=== PATIENT | female | born 1940 | race Two or more races ===

== ENCOUNTER 2018-11-16 19:29 | Emergency (ER) | payer OTHER ==
[~2018-11-16] VITALS: Ht 162.6 cm; Wt 65.8 kg
[2018-11-16 23:03] LABS: Basophils # (auto) 0 uL; Basophils % (auto) 0.6 % (0.0-2.0); Eosinophils # (auto) 0 uL; Hematocrit 45.8 % (36.0-46.0); Hemoglobin 15.5 g/dL (12.2-16.2); Lymphocytes # (auto) 0.4 uL; Lymphocytes % (auto) 4.9 % (10.0-50.0); Mean Corpuscular Hemoglobin 31.7 pg (28.0-32.0); Mean Corpuscular Hgb Conc. 33.8 g/dL (32.0-36.0); Mean Corpuscular Volume 93.6 fL (80.0-100.0); Monocytes # (auto) 0.5 uL; Monocytes % (auto) 5.8 % (0.0-12.0); Neutrophils # (auto) 7.6 uL; Neutrophils % (auto) 88.7 % (37.0-80.0); Platelet Count (auto) 148 10^3/uL (140-450); Red Cell Distribution Width 14.2 % (11.8-14.3); White Blood Cell 8.6 10^3/uL (4.4-10.8)
[2018-11-16 23:23] LABS: Albumin 2.8 g/dL (3.4-5.0); BUN/Creatinine Ratio 17.1; Calcium 8.9 mg/dL (8.5-10.1); Potassium 4.3 mmol/L (3.5-5.1)
[2018-11-16 23:29] LABS: Bilirubin, Total 0.4 mg/dL (0.2-1.0); Total Protein 7.1 g/dL (6.4-8.2)
[2018-11-17] LABS: Urine Blood Negative /uL (Negative); Urine Specific Gravity 1.022 (1.001-1.035); Urine WBC 1 /hpf (0 - 5)
[2018-11-17] MEDS ORDERED: ALBUTEROL SULF 2.5 MG/0.5ML(0.5%) NEB SOLN NEB ONE
[2018-11-17 00:01] LABS: Urine Bacteria FEW /hpf (None Seen); Urine Hyaline Cast FEW /lpf (0 - 2); Urine Mucus FEW (None Seen)
[2018-11-17] MEDS ORDERED: IOHEXOL 350 MG/ML 100ML IJ ONE (00:05)
[2018-11-17] MEDS ORDERED: ASPirin-EC 325mg tab PO ONE (00:15)
[2018-11-17 09:59] VITALS: BP 128/77
== END 2018-11-17 10:16 | disposition short-term general hospital (02) ==
LOC: EDBD 19:29 → ER 19:37
DX: R79.89 Other specified abnormal findings of blood chemistry (principal); R79.1 Abnormal coagulation profile
CPT/HCPCS: 36415; 51702; 71045; 71275; 80053; 81001; 83605; 83735; 83880; 84484; 85025; 85379; 93005; 94761; 99285; Q9967

== ENCOUNTER 2019-11-10 11:24 | Emergency (ER) | payer OTHER ==
[~2019-11-10] VITALS: Ht 165.1 cm; Wt 59.0 kg
[2019-11-10] MEDS ORDERED: SODIUM CHLORIDE 0.9% 500 ML IVB ONE (11:30)
[2019-11-10 12:12] LABS: Basophils # (auto) 0.1 uL; Basophils % (auto) 0.5 % (0.0-2.0); Eosinophils # (auto) 0.1 uL; Eosinophils % (auto) 1.1 % (0.0-7.0); Hematocrit 46.1 % (36.0-46.0); Hemoglobin 15.2 g/dL (12.2-16.2); Lymphocytes # (auto) 1.9 uL; Lymphocytes % (auto) 18.2 % (10.0-50.0); Mean Corpuscular Hemoglobin 31.6 pg (28.0-32.0); Mean Corpuscular Volume 95.7 fL (80.0-100.0); Monocytes # (auto) 0.8 uL; Monocytes % (auto) 7.7 % (0.0-12.0); Neutrophils # (auto) 7.5 uL; Neutrophils % (auto) 72.5 % (37.0-80.0); Platelet Count (auto) 148 10^3/uL (140-450); Red Blood Cells 4.82 10^6/uL (4.0-5.20); Red Cell Distribution Width 16.6 % (11.8-14.3); White Blood Cell 10.3 10^3/uL (4.4-10.8)
[2019-11-10 12:32] LABS: Albumin 2.7 g/dL (3.4-5.0); Calcium 9.7 mg/dL (8.5-10.1); Magnesium 2.3 mg/dL (1.6-2.6); Potassium 3.8 mmol/L (3.5-5.1)
[2019-11-10 12:37] LABS: BUN/Creatinine Ratio 22.2; Bilirubin, Total 0.4 mg/dL (0.2-1.0)
[2019-11-10 12:58] LABS: Lactic Acid w/Reflex 2.6 mmol/L (0.4-2.0)
[2019-11-10] MEDS ORDERED: DEXTROSE 10% 1,000 ML IV ONE (13:30)
[2019-11-10 16:18] LABS: Urine Bacteria FEW /hpf (None Seen); Urine Blood 2+ /uL (Negative); Urine Hyaline Cast FEW /lpf (0 - 2); Urine Mucus FEW (None Seen); Urine Specific Gravity 1.024 (1.001-1.035); Urine WBC 216 /hpf (0 - 5)
[2019-11-10] MEDS ORDERED: levoFLOXacin 500MG 100 ML IV ONE (17:00)
[2019-11-10 22:08] VITALS: BP 149/99
== END 2019-11-11 01:12 | disposition short-term general hospital (02) ==
LOC: ER 11:24 → EDBD 11:24 → ER 11-11 01:12
DX: R41.82 Altered mental status, unspecified (principal); N39.0 Urinary tract infection, site not specified; I10 Essential (primary) hypertension; Z88.0 Allergy status to penicillin
CPT/HCPCS: 36415; 71045; 80053; 81001; 82962; 83605; 83735; 85025; 87040; 93005; 96361; 96365; 96366; 99285; J1956

== ENCOUNTER 2019-11-30 09:29 | Inpatient (IN) | payer OTHER ==
[~2019-11-30] VITALS: Ht 165.1 cm; Wt 69.2 kg
[2019-11-30 11:17] LABS: Basophils # (auto) 0 10 ^3/uL (0-0.2); Basophils % (auto) 0.2 % (0.0-2.0); Eosinophils # (auto) 0.1 10 ^3/uL (0-0.8); Eosinophils % (auto) 0.6 % (0.0-7.0); Lymphocytes # (auto) 1.6 10 ^3/uL (0.4-5.4); Lymphocytes % (auto) 12.7 % (10.0-50.0); Mean Corpuscular Hemoglobin 30.9 pg (28.0-32.0); Mean Corpuscular Hgb Conc. 32.6 g/dL (32.0-36.0); Mean Corpuscular Volume 94.8 fL (80.0-100.0); Monocytes # (auto) 0.6 10 ^3/uL (0-1.3); Monocytes % (auto) 4.9 % (0.0-12.0); Neutrophils # (auto) 10.5 10 ^3/uL (1.6-8.6); Neutrophils % (auto) 81.6 % (37.0-80.0); Nucleated Red Blood Cells % 0.2 %; Platelet Count (auto) 287 10^3/uL (140-450); Red Blood Cells 5.49 10^6/uL (4.0-5.20); Red Cell Distribution Width 17.7 % (11.8-14.3); White Blood Cell 12.9 10^3/uL (4.4-10.8)
[2019-11-30 11:39] LABS: Albumin 3.4 g/dL (3.4-5.0); Calcium 9.5 mg/dL (8.5-10.1); Magnesium 2.6 mg/dL (1.6-2.6)
[2019-11-30 11:46] LABS: Lactic Acid w/Reflex 5.3 mmol/L (0.4-2.0)
[2019-11-30 11:53] LABS: BUN/Creatinine Ratio 31.8; Bilirubin, Total 0.7 mg/dL (0.2-1.0); Total Protein 6.9 g/dL (6.4-8.2)
[2019-11-30 11:54] LABS: Potassium 2.9 mmol/L (3.5-5.1)
[2019-11-30] MEDS ORDERED: SODIUM CHLORIDE 0.9% 1,000 ML IV ONE ×3 (12:10→14:15)
[2019-11-30] MEDS ORDERED: cefTRIAXone 1GM/50ML D5W 50 ML IV ONE (12:15)
[2019-11-30] MEDS ORDERED: ENOXAPARIN SOD 60 MG/0.6 ML SYRINGE SC ONE (13:30)
[2019-11-30] MEDS ORDERED: HYDROcodone-ACET 5/325MG TAB PO PRN (14:15)
[2019-11-30] MEDS ORDERED: IPRATROPIUM BROM 0.5 MG/2.5ML INH SOL NEB PRN (14:15)
[2019-11-30] MEDS ORDERED: ALBUTEROL SULF 2.5 MG/0.5ML(0.5%) NEB SOLN NEB PRN (14:15)
[2019-11-30] MEDS ORDERED: NITROGLYCERIN 0.4 MG SL TAB SL PRN (14:15)
[2019-11-30] MEDS ORDERED: MORPHINE SULF INJ 2 MG/ML SYRINGE 1ML IV PRN ×2 (14:15)
[2019-11-30] MEDS ORDERED: VANCOMYCIN PER PHARMACY 0 MG IV SCH (14:15)
[2019-11-30] MEDS ORDERED: VANCOMYCIN 1GM/250ML 250 ML IV ONE (14:30)
[2019-11-30 15:14] VITALS: BP 128/77
[2019-11-30] MEDS: ONDANSETRON HCL 4 MG/2 ML VIAL IV PRN (15:14)
[2019-11-30] MEDS: POTASSIUM CHL 20MEQ/100ML 100 ML IV SCH ×2 (16:33→19:05)
[2019-11-30] MEDS: SODIUM BICARBONATE 50ML VIAL 50 ML in SOD CHL 0.45% 1,000 ML IV SCH (16:33)
[2019-11-30] MEDS ORDERED: POTASSIUM CHL 20MEQ/100ML 100 ML IV SCH (19:00)
[2019-11-30 21:47] VITALS: BP 121/63
[2019-11-30] MEDS: FAMOTIDINE (10MG/ML) 2ML VL IV SCH (22:59)
[2019-12-01 05:30] VITALS: BP 113/69
[2019-12-01 06:41] LABS: Basophils # (auto) 0 10 ^3/uL (0-0.2); Basophils % (auto) 0.1 % (0.0-2.0); Eosinophils # (auto) 0 10 ^3/uL (0-0.8); Eosinophils % (auto) 0.2 % (0.0-7.0); Hemoglobin 12.6 g/dL (12.2-16.2); Lymphocytes # (auto) 1.2 10 ^3/uL (0.4-5.4); Lymphocytes % (auto) 12.9 % (10.0-50.0); Mean Corpuscular Hgb Conc. 34.1 g/dL (32.0-36.0); Mean Corpuscular Volume 93.8 fL (80.0-100.0); Monocytes # (auto) 0.9 10 ^3/uL (0-1.3); Monocytes % (auto) 9.8 % (0.0-12.0); Neutrophils # (auto) 6.9 10 ^3/uL (1.6-8.6); Platelet Count (auto) 173 10^3/uL (140-450); Red Blood Cells 3.95 10^6/uL (4.0-5.20); Red Cell Distribution Width 17.3 % (11.8-14.3)
[2019-12-01 06:57] LABS: Albumin 2.2 g/dL (3.4-5.0); Calcium 7.9 mg/dL (8.5-10.1); Potassium 3.4 mmol/L (3.5-5.1)
[2019-12-01 07:03] LABS: BUN/Creatinine Ratio 44.4; Bilirubin, Total 0.5 mg/dL (0.2-1.0); Total Protein 4.6 g/dL (6.4-8.2)
[2019-12-01] MEDS: SODIUM BICARBONATE 50ML VIAL 50 ML in SOD CHL 0.45% 1,000 ML IV SCH ×2 (07:15→10:43)
[2019-12-01 07:30] LABS: Urine Bacteria NONE SEEN /hpf (None Seen); Urine Blood TRACE /uL (Negative); Urine Budding Yeast MODERATE /hpf (None Seen); Urine Hyaline Cast FEW /lpf (0 - 2); Urine Mucus FEW (None Seen); Urine Specific Gravity 1.033 (1.001-1.035); Urine WBC 4 /hpf (0 - 5)
[2019-12-01 09:00] VITALS: BP 117/63
[2019-12-01 13:00] VITALS: BP 120/76
[2019-12-01] MEDS: SODIUM CHLORIDE 0.9% 1,000 ML IV SCH (16:08)
[2019-12-01 16:32] VITALS: BP 121/83
[2019-12-01] MEDS ORDERED: METO-158 PO (18:17)
[2019-12-01] MEDS ORDERED: TAMO20TA9 PO (18:24)
[2019-12-01] MEDS ORDERED: SERT-274 PO (18:24)
[2019-12-01] MEDS ORDERED: DIVA250T12 PO (18:24)
[2019-12-01] MEDS ORDERED: FAMO-12 PO (18:24)
[2019-12-01] MEDS ORDERED: LISI10TA6 PO (18:24)
[2019-12-01] MEDS ORDERED: RISE35TA PO (18:24)
[2019-12-01] MEDS ORDERED: QUET100T46 PO (18:24)
[2019-12-01] MEDS ORDERED: ACE3T PO (18:27)
[2019-12-01] MEDS ORDERED: CRAN200C4 PO (18:27)
[2019-12-01] MEDS: FAMOTIDINE (10MG/ML) 2ML VL IV SCH (21:35)
[2019-12-01] MEDS ORDERED: VANCOMYCIN PER PHARMACY 0 MG IV SCH (21:45)
[2019-12-01 22:00] VITALS: BP 128/79
[2019-12-01] MEDS ORDERED: VANCOMYCIN 1GM/250ML 250 ML IV ONE (22:45)
[2019-12-02 05:00] VITALS: BP 123/77
[2019-12-02] MEDS: SODIUM CHLORIDE 0.9% 1,000 ML IV SCH ×2 (06:52→23:35)
[2019-12-02 07:01] LABS: Basophils # (auto) 0 10 ^3/uL (0-0.2); Basophils % (auto) 0.3 % (0.0-2.0); Eosinophils # (auto) 0.2 10 ^3/uL (0-0.8); Eosinophils % (auto) 2.3 % (0.0-7.0); Hematocrit 33.2 % (36.0-46.0); Hemoglobin 11.3 g/dL (12.2-16.2); Lymphocytes # (auto) 1.1 10 ^3/uL (0.4-5.4); Lymphocytes % (auto) 17.1 % (10.0-50.0); Mean Corpuscular Hemoglobin 32.4 pg (28.0-32.0); Mean Corpuscular Hgb Conc. 33.9 g/dL (32.0-36.0); Mean Corpuscular Volume 95.4 fL (80.0-100.0); Monocytes # (auto) 0.6 10 ^3/uL (0-1.3); Monocytes % (auto) 9.4 % (0.0-12.0); Neutrophils # (auto) 4.8 10 ^3/uL (1.6-8.6); Neutrophils % (auto) 70.9 % (37.0-80.0); Nucleated Red Blood Cells % 0.1 %; Platelet Count (auto) 141 10^3/uL (140-450); Red Blood Cells 3.48 10^6/uL (4.0-5.20); White Blood Cell 6.7 10^3/uL (4.4-10.8)
[2019-12-02 07:19] LABS: BUN/Creatinine Ratio 41.8; Calcium 7.9 mg/dL (8.5-10.1); Potassium 3.1 mmol/L (3.5-5.1)
[2019-12-02 09:00] VITALS: BP 129/74
[2019-12-02] MEDS ORDERED: POTASSIUM EFFERVESENT TAB 25 MEQ PO ONE (11:30)
[2019-12-02] MEDS ORDERED: TAMOXIFEN CITR 10 MG TAB PO ONE (11:45)
[2019-12-02 13:00] VITALS: BP 133/84
[2019-12-02] MEDS: VANCOMYCIN 1GM/250ML 250 ML IV SCH (15:59)
[2019-12-02 17:00] VITALS: BP 108/66
[2019-12-02 22:00] VITALS: BP 120/81
[2019-12-02] MEDS: FAMOTIDINE (10MG/ML) 2ML VL IV SCH (22:05)
[2019-12-03 05:00] VITALS: BP 137/76
[2019-12-03 06:37] LABS: Basophils # (auto) 0 10 ^3/uL (0-0.2); Basophils % (auto) 0.4 % (0.0-2.0); Eosinophils # (auto) 0.1 10 ^3/uL (0-0.8); Eosinophils % (auto) 2.3 % (0.0-7.0); Hematocrit 35.8 % (36.0-46.0); Hemoglobin 12.3 g/dL (12.2-16.2); Lymphocytes # (auto) 0.8 10 ^3/uL (0.4-5.4); Lymphocytes % (auto) 15.7 % (10.0-50.0); Mean Corpuscular Hemoglobin 32.2 pg (28.0-32.0); Mean Corpuscular Hgb Conc. 34.3 g/dL (32.0-36.0); Mean Corpuscular Volume 93.8 fL (80.0-100.0); Monocytes # (auto) 0.5 10 ^3/uL (0-1.3); Monocytes % (auto) 9.2 % (0.0-12.0); Neutrophils # (auto) 3.9 10 ^3/uL (1.6-8.6); Neutrophils % (auto) 72.4 % (37.0-80.0); Nucleated Red Blood Cells % 0.1 %; Platelet Count (auto) 148 10^3/uL (140-450); Red Blood Cells 3.82 10^6/uL (4.0-5.20); Red Cell Distribution Width 16.9 % (11.8-14.3); White Blood Cell 5.3 10^3/uL (4.4-10.8)
[2019-12-03 06:46] LABS: Potassium 3.2 mmol/L (3.5-5.1)
[2019-12-03 06:48] LABS: BUN/Creatinine Ratio 36.4
[2019-12-03 08:56] VITALS: BP 110/58
[2019-12-03 09:00] VITALS: BP 154/74
[2019-12-03] MEDS: VANCOMYCIN 1GM/250ML 250 ML IV SCH (10:02)
[2019-12-03] MEDS: TAMOXIFEN CITR 10 MG TAB PO SCH (10:13)
[2019-12-03] MEDS ORDERED: ASPirin 81 mg TAB PO ONE (12:00)
[2019-12-03] MEDS ORDERED: ATORVASTATIN 20 MG TAB PO ONE (12:00)
[2019-12-03] MEDS ORDERED: POTASSIUM EFFERVESENT TAB 25 MEQ PO ONE (12:00)
[2019-12-03] MEDS ORDERED: LISINOPRIL 10 MG TAB PO ONE (12:00)
[2019-12-03] MEDS ORDERED: FLUCONAZOLE 200MG/100ML 100 ML IV ONE (12:15)
[2019-12-03 13:00] VITALS: BP 119/76
[2019-12-03] MEDS: ONDANSETRON HCL 4 MG/2 ML VIAL IV PRN (14:47)
[2019-12-03] MEDS: SODIUM CHLORIDE 0.9% 1,000 ML IV SCH (16:15)
[2019-12-03 17:00] VITALS: BP 128/67
[2019-12-03] MEDS: ACETAMINOPHEN 500 MG TAB PO PRN (21:39)
[2019-12-03 22:00] VITALS: BP 126/79
[2019-12-03] MEDS: FAMOTIDINE (10MG/ML) 2ML VL IV SCH (22:15)
[2019-12-04 05:00] VITALS: BP 117/72
[2019-12-04 06:45] LABS: Calcium 8.2 mg/dL (8.5-10.1); Potassium 3.9 mmol/L (3.5-5.1)
[2019-12-04] MEDS: SODIUM CHLORIDE 0.9% 1,000 ML IV SCH (08:55)
[2019-12-04 09:00] VITALS: BP 115/75
[2019-12-04] MEDS: LISINOPRIL 10 MG TAB PO SCH (10:00)
[2019-12-04] MEDS: TAMOXIFEN CITR 10 MG TAB PO SCH (10:00)
[2019-12-04] MEDS: ASPirin 81 mg TAB PO SCH (10:49)
[2019-12-04] MEDS: FLUCONAZOLE 200MG/100ML 100 ML IV SCH (10:50)
[2019-12-04 13:00] VITALS: BP 115/75
[2019-12-04] MEDS ORDERED: LACTULOSE 20Gm/30ML SOLN PO PRN (14:45)
[2019-12-04] MEDS: Ensure HIGH Protein Chocolate 8oz Bottle PO SCH (18:13)
[2019-12-04] MEDS: FAMOTIDINE (10MG/ML) 2ML VL IV SCH (21:21)
[2019-12-04] MEDS: ATORVASTATIN 20 MG TAB PO SCH (21:22)
[2019-12-04 22:00] VITALS: BP 128/94
[2019-12-05] MEDS: SODIUM CHLORIDE 0.9% 1,000 ML IV SCH ×2 (02:42→18:26)
[2019-12-05] MEDS: ACETAMINOPHEN 500 MG TAB PO PRN (04:50)
[2019-12-05 05:00] VITALS: BP 111/90
[2019-12-05] MEDS: Ensure HIGH Protein Chocolate 8oz Bottle PO SCH ×3 (08:00→18:00)
[2019-12-05 08:44] VITALS: BP 116/74
[2019-12-05 09:38] LABS: Basophils # (auto) 0 10 ^3/uL (0-0.2); Basophils % (auto) 0.5 % (0.0-2.0); Eosinophils # (auto) 0.2 10 ^3/uL (0-0.8); Eosinophils % (auto) 2.6 % (0.0-7.0); Hematocrit 36.6 % (36.0-46.0); Hemoglobin 12.4 g/dL (12.2-16.2); Lymphocytes # (auto) 1.2 10 ^3/uL (0.4-5.4); Lymphocytes % (auto) 13.5 % (10.0-50.0); Mean Corpuscular Hemoglobin 31.8 pg (28.0-32.0); Mean Corpuscular Hgb Conc. 33.8 g/dL (32.0-36.0); Monocytes # (auto) 0.7 10 ^3/uL (0-1.3); Monocytes % (auto) 7.5 % (0.0-12.0); Neutrophils # (auto) 6.6 10 ^3/uL (1.6-8.6); Neutrophils % (auto) 75.9 % (37.0-80.0); Platelet Count (auto) 157 10^3/uL (140-450); Red Cell Distribution Width 16.9 % (11.8-14.3); White Blood Cell 8.7 10^3/uL (4.4-10.8)
[2019-12-05 09:56] LABS: Calcium 8.5 mg/dL (8.5-10.1); Potassium 3.8 mmol/L (3.5-5.1)
[2019-12-05] MEDS: LISINOPRIL 10 MG TAB PO SCH (09:58)
[2019-12-05] MEDS: ASPirin 81 mg TAB PO SCH (09:58)
[2019-12-05 09:59] LABS: BUN/Creatinine Ratio 20.3
[2019-12-05] MEDS: FLUCONAZOLE 200MG/100ML 100 ML IV SCH (09:59)
[2019-12-05] MEDS: TAMOXIFEN CITR 10 MG TAB PO SCH (09:59)
[2019-12-05 13:06] VITALS: BP 118/75
[2019-12-05] MEDS: FAMOTIDINE (10MG/ML) 2ML VL IV SCH (21:11)
[2019-12-05] MEDS: ATORVASTATIN 20 MG TAB PO SCH (21:12)
[2019-12-05 21:14] VITALS: BP 129/86
[2019-12-06] VITALS (7 sets, daily range): BP systolic 114–138; BP diastolic 68–90
[2019-12-06 07:40] LABS: Basophils # (auto) 0 10 ^3/uL (0-0.2); Basophils % (auto) 0.7 % (0.0-2.0); Eosinophils # (auto) 0.2 10 ^3/uL (0-0.8); Eosinophils % (auto) 3.6 % (0.0-7.0); Hematocrit 37.2 % (36.0-46.0); Hemoglobin 12.3 g/dL (12.2-16.2); Lymphocytes # (auto) 1.3 10 ^3/uL (0.4-5.4); Lymphocytes % (auto) 19.1 % (10.0-50.0); Mean Corpuscular Hemoglobin 31.9 pg (28.0-32.0); Mean Corpuscular Volume 96.6 fL (80.0-100.0); Monocytes # (auto) 0.4 10 ^3/uL (0-1.3); Monocytes % (auto) 6.3 % (0.0-12.0); Neutrophils # (auto) 4.7 10 ^3/uL (1.6-8.6); Neutrophils % (auto) 70.3 % (37.0-80.0); Nucleated Red Blood Cells % 0.1 %; Platelet Count (auto) 137 10^3/uL (140-450); Red Blood Cells 3.85 10^6/uL (4.0-5.20); White Blood Cell 6.6 10^3/uL (4.4-10.8)
[2019-12-06 07:48] LABS: Calcium 8.7 mg/dL (8.5-10.1); Potassium 4.4 mmol/L (3.5-5.1)
[2019-12-06 07:54] LABS: BUN/Creatinine Ratio 20.6
[2019-12-06] MEDS: Ensure HIGH Protein Chocolate 8oz Bottle PO SCH ×3 (08:11→18:14)
[2019-12-06] MEDS: LISINOPRIL 10 MG TAB PO SCH (10:00)
[2019-12-06] MEDS: ASPirin 81 mg TAB PO SCH (10:00)
[2019-12-06] MEDS: TAMOXIFEN CITR 10 MG TAB PO SCH (10:00)
[2019-12-06] MEDS: FLUCONAZOLE 200MG/100ML 100 ML IV SCH (10:23)
[2019-12-06] MEDS: SODIUM CHLORIDE 0.9% 1,000 ML IV SCH (11:28)
[2019-12-06] MEDS ORDERED: cefTRIAXone 1GM/50ML D5W 50 ML IV ONE (14:15)
[2019-12-07] MEDS ORDERED: cefTRIAXone 1GM/50ML D5W 50 ML IV SCH (09:00)
== END 2019-12-06 23:06 | disposition short-term general hospital (02) | DRG 871 ==
LOC: ER 09:29 → EDBD 09:29 → TELE 09:30 → TELE-CENTR 21:29
PROVIDERS: ADMIT Nurse Practitioner Acute Care; ATTEND Internal Medicine
DX: A41.9 Sepsis, unspecified organism (principal); G93.41 Metabolic encephalopathy; N17.0 Acute kidney failure with tubular necrosis; D68.59 Other primary thrombophilia; J98.11 Atelectasis; N39.0 Urinary tract infection, site not specified; E44.0 Moderate protein-calorie malnutrition; E86.0 Dehydration; E87.6 Hypokalemia; I48.91 Unspecified atrial fibrillation; N18.3 Chronic kidney disease, stage 3 (moderate); Z88.0 Allergy status to penicillin; Z68.25 Body mass index [BMI] 25.0-25.9, adult; I12.9 Hypertensive chronic kidney disease with stage 1 through stage 4 chronic kidney disease, or unspecified chronic kidney disease
CPT/HCPCS: 36415; 36600; 70450; 71045; 80048; 80053; 80202; 81001; 82805; 83605; 83735; 84443; 84484; 85025; 87040; 87077; 87086; 87088; 87186; 93005; 93306; 96365; 96367; 96372; 96375; G0378; J0696; J1450; J2405; J3480; J3490